=== PATIENT | female | born 1980 | race Asian ===

== ENCOUNTER 2021-03-14 12:59 | Emergency (ER) | payer OTHER, SELFPAY ==
--- NOTE | ~2021-03-14 | XR_ITS ---
EXAMINATION: XR ankle RT min 3V DATE: 03/14/2021 13:26 INDICATION: Right ankle injury and pain. TECHNIQUE: 4 views of right ankle were obtained. COMPARISON: None. FINDINGS: Bone alignment is normal. No fracture. Joint spaces are well maintained. There is ankle sof t tissue swelling. IMPRESSION: 1. No fracture. Reviewed, dictated and finalized at location A. IMPRESSION: 1. No fracture.
[2021-03-14 13:09] VITALS: BP 106/77; PULSE 78; RESP 16; O2SAT 100
--- NOTE | 2021-03-14 13:56 | ED.LOWEXIN ---
HPI - Extremity Injury (Lower) General Chief Complaint: Extremity Injury, Lower Stated Complaint: rt ankle injury Time Seen by Provider: 03/14/21 13:50 Source: patient, RN notes reviewed and old records reviewed Mode of arrival: ambulatory Limitations: no limitations History of Present Illness HPI Narrative: 41 year old female who presents to [facility] with complaints of sitting on floor last evening and her child fell onto her right ankle foot causing hyperextension of her ankle. Patient states that she has pain to the right lateral ankle region with noted swelling, rates her pain as 8/10. Patient reports that she has put ice and Biofreeze to ankle region and has taken Tylenol with no resolution of her symptoms. Patient is able to bear weight to right foot but with pain and limping gait. MD complaint: ankle injury (right) Onset (ago): day(s) (last evening around 9 pm) Related Data Home Medications Medication Instructions Recorded Confirmed levothyroxine 03/14/21 Allergies Allergy/AdvReac Type Severity Reaction Status Date / Time No Known Allergies Allergy Unverified 11/24/18 12:54 Review of Systems Review of Systems: CONSTITUTIONAL: Denies fever, chills, or sweats. EYES: Denies visual changes, redness, or discharge. ENT: Denies rhinorrhea, congestion, sore throat, or otalgia. CARDIOVASCULAR: Denies chest pain, palpitations, or edema. RESPIRATORY: Denies cough or dyspnea. GASTROINTESTINAL: Denies abdominal pain, nausea, vomiting, or diarrhea. GENITOURINARY: Denies dysuria or hematuria. SKIN: Denies rash or itching. MUSCULOSKELETAL: Denies back pain, positive for right lateral ankle joint pain, or myalgia. NEUROLOGIC: Denies headache, numbness, or weakness. PSYCHIATRIC: Denies anxiety or depression. All systems reviewed & are unremarkable except as noted in HPI and below PMFSH Past Medical History Medical History (Updated 03/16/21 @ 11:41 by Nancy Killian NP) Hypothyroid Surgical History Surgical History (Updated 03/16/21 @ 11:41 by Nancy Killian NP) Previous section Family History Family History (Updated 03/16/21 @ 11:42 by Nancy Killian NP) Mother Lung cancer Social History Social History (Updated 03/16/21 @ 11:42 by Nancy Killian NP) Smoking status: Never smoker Alcohol intake: never Substance use: never Living arrangements: with family Gender identity (if verbalized by the patient): Female Comments At time of signature, agree with nursing past medical, surgical, social and family history. There is no relevant family history pertinent to the presenting complaint Exam Narrative: GENERAL: Well-appearing, well-nourished, and in no acute distress. HEAD: Normocephalic, atraumatic. EYES: PERRLA and EOMI. ENT: Nares clear, no rhinorrhea or epistaxis. Mucous membranes moist.TM's normal with good light reflex, throat pink with no lesions or exudates, no tonsil enlargement. NECK: Supple.no lymphadenopathy CHEST: Clear to auscultation. No respiratory distress.SAO2 100% on room air HEART: Regular rate and rhythm. No murmur heard. Normal peripheral pulses. ABDOMEN: Soft, nontender, nondistended, normal active bowel sounds. EXTREMITIES: Normal range of motion. No edema, with exception to right lateral ankle which is swollen and tender to palpation, patient is able to weight bear to right foot but has limping gait. sensation, circulation and mobility is intact with discomfort. SKIN: Warm, dry, no rash. NEURO: No focal deficits. Alert and oriented x3. Course Vital Signs Vital signs: Vital Signs Pulse Rate 78 03/14/21 13:09 Respiratory Rate 16 03/14/21 13:09 Blood Pressure 106/77 03/14/21 13:09 Pulse Oximetry 100 03/14/21 13:09 Pulse Rate 78 03/14/21 13:09 Respiratory Rate 16 03/14/21 13:09 Blood Pressure 106/77 03/14/21 13:09 Pulse Oximetry 100 03/14/21 13:09 MDM - Extremity Injury (Lower) Differential Diagnosis Differen
== END 2021-03-14 14:05 | disposition home or self-care (01) ==
PROVIDERS: Emergency Provider Registered Nurse; PCP Emergency Medicine
DX: S93.401A Sprain of unspecified ligament of right ankle, initial encounter (principal); S96.911A Strain of unspecified muscle and tendon at ankle and foot level, right foot, initial encounter; W50.0XXA Accidental hit or strike by another person, initial encounter; E03.9 Hypothyroidism, unspecified
CPT/HCPCS: 73610; 99213; G0463

== ENCOUNTER 2021-10-24 12:30 | Outpatient (RCR) | payer OTHER, SELFPAY ==
--- NOTE | 2021-09-26 14:33 | PTOPEVAL ---
Thank you for referring Dominique Wise to [facility].? The patient is scheduled to be seen for therapy? 1 x/week for 4 weeks. Please review, sign, date and return this plan of care JAYDEN. I agree with and certify that the following plan of care is medically necessary. Referring Physician Date Attending Provider: Yair Blevins MD Diagnosis left knee pain Onset Aug 01 Subjective Information Denies any particular injury Query Text:As Reported By Patient/ to her knee. She reports Family increased knee pain with steps, walking,prolonged standing/ sitting. She is limited with squatting position with cleaning task. As the day progresses she has increased knee pain with activities. She does not perform a fitness program or walking program. Diagnostic Tests X-Rays For This Problem Yes: normal Pain Assessment Left Knee(s) Reported Pain Level 4 Pain Description Aching Pain Frequency Acute Lowest Pain Intensity 4 Greatest Pain Intensity 8 Pain Aggravating Factors Exercise/Activity,Lifting, Prolonged Position,Stair Climbing,Walking,Weight Bearing/Standing Lower Extremity Range of Motion General Lower Extremity Range of Motion Reason Not Measured WNL/Left,WNL/Right Lower Extremity Muscle Strength Testing Hip Strength Bilateral Hip Flexion Strength 5 Normal Hip Extension Strength 4+ Good + Hip Abduction Strength 3 Fair Knee Strength Bilateral Knee Flexion Strength 5 Normal Knee Extension Strength 5 Normal Ankle Strength Bilateral Ankle Dorsiflexion Strength 5 Normal Muscle Length Testing Muscle Length Testing Two-Joint Hip Flexor Shortened Muscles Short (R) Iliopsoas,Short (L) Iliopsoas,Short (R) Rectus Femoris,Short (L) Rectus Femoris Piriformis w/Hip Neutral (R) Mild Tightness,(L) Moderate Tightness Right Prone Hip Internal Rotator Length 25 (degrees) Left Prone Hip Internal Rotator Length ( 15 degrees) Left Hamstring Length -40:(90 - 90 Position) Right Hamstring Length -40:(90 - 90 Position) Posture Standing Position Weight Distribution Balanced Knee Posture (L) Genu Recurvatum,(R) Genu Recurvatum Ankle/Foot Posture (L) Pronated,(R) Pronated Palpation
--- NOTE | 2021-10-04 16:23 | PCPTNOTE ---
Patient did not show up for scheduled appointment this date; called and left voicemail with reminder for next appointment October 10 @ 14:15.
--- NOTE | 2021-10-10 14:12 | PCPTNOTE ---
Patient called & cancelled scheduled appointment this date due to not being able to make appointment
--- NOTE | 2021-10-16 13:05 | PCPTNOTE ---
Patient called & cancelled scheduled appointment this date due to having to take her son to urgent care. Therapist call patient to verify she will be making her re-eval due to our policy stating allowed three cancellation/no show which she stated she understood the policy but the reasons she has cancelled are unforeseen circumstance that arrive last minute. Is aware her re-eval is next week is feeling much better overall but wants to review and verify mechanics before she stops therapy.
--- NOTE | 2021-10-24 13:23 | PCPTNOTE ---
Admitting Provider: Attending Provider: Yair Blevins, Patient:Dominique Wise Date of :1980 Physical Therapy Discharge Summary Pt referred to therapy due to acute left knee pain. She has attended 2 visits from 09/26/21 to 10/24/21 with 3 missed visits. She reports improved knee pain and ability to perform normal task. She remains limited with prolonged walking and steps. ROM: normal knee range hip strength: marcela hip abduction: 3+/5, hip ext: 5/5, hip flex: 5/5, knee flex/ext: 5/5 functional movement: knee valgus with decreased glut control with single leg stance, lunges, squats and steps. LEFS: 52% impaired at eval and 22.5% impaired at update. Assessment: Dominique present to therapy with limited progress with hip strength and body awareness. Noted to have improved pain and ability to perform daily task. She has been provided a HEP, but required re-instruction to perform properly. Verbalized understanding for HEP and proper joint position to improve pain and muscle recruitment. Will DC skilled therapy services at this time with pt to cont with HEP and walking program. Thank you for referring this patient to [facility]. Please review, sign, date and return this discharge summary JAYDEN. I have been updated about the patient's current status and I agree with discharge from the above service at this time. Referring Physician Date
== END 2021-10-24 15:49 | disposition home or self-care (01) ==
LOC: ANHPT 12:30
PROVIDERS: PCP Emergency Medicine; Visit Provider Emergency Medicine
DX: M25.562 Pain in left knee (principal)
CPT/HCPCS: 97110; 97112; 97161